=== PATIENT | female | born 1965 | race African-American/Black ===

== ENCOUNTER 2016-05-03 07:48 | Emergency (ER) | payer BC ==
[2016-05-03] MEDS ORDERED: KETOROLAC TROMETHAMINE 60 MG/2 ML SDV IM ONE (09:58)
--- NOTE | 2016-05-03 10:25 | ER Document Report ---
HPI - HPI Patient complains to provider of: right hand and left foot pain Onset: Yesterday Onset/Duration: Waxing and waning Quality of pain: Achy Severity: Severe Pain Level: 5 Context: Patient presents to the emergency department with complaints of left foot pain and right hand pain. Patient reports she's had trouble usually with her right foot but today its her left foot that hurts. She reports she works at [employer] and is up all night on her feet. 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 Patient denies trauma. Denies f/n/v. Reports she takes tramadol for her right foot and knee pain but it was not taking care of the pain today. Associated Symptoms: None Exacerbated by: Movement, Walking Relieved by: Denies Similar symptoms previously: Yes Recently seen / treated by doctor: No - CARDIOVASCULAR Cardiovascular: DENIES: Chest pain - REPRODUCTIVE Reproductive: DENIES: : - DERM Skin Color: Normal Past Medical History - General Information source: Patient Last Menstrual Period: [facility] - Social History Smoking Status: Unknown if Ever Smoked Cigarette use (# per day): No Chew tobacco use (# tins/day): No Frequency of alcohol use: None Drug Abuse: None Occupation: [employer] Family History: Reviewed & Not Pertinent Patient has suicidal ideation: No Patient has homicidal ideation: No - Past Medical History Cardiac Medical History: Reports: Hx Hypertension Renal/ Medical History: Denies: Hx Peritoneal Dialysis Past Surgical History: Reports: Hx Section - x2, Hx Cholecystectomy, Hx Tubal Ligation - Immunizations Hx Diphtheria, Pertussis, Tetanus Vaccination: - 2007 Vertical Provider Document - CONSTITUTIONAL Agree With Documented VS: Yes Exam Limitations: No Limitations General Appearance: WD/WN, Mild Distress - INFECTION CONTROL TRAVEL OUTSIDE OF THE [place] IN LAST 30 DAYS: No - HEENT HEENT: Atraumatic, Normocephalic - NECK Neck: Normal Inspection, Supple. negative: Lymphadenopathy-Left, Lymphadenopathy-Right - RESPIRATORY Respiratory: Breath Sounds Normal, No Respiratory Distress O2 Sat by Pulse Oximetry: 96 - CARDIOVASCULAR Cardiovascular: Regular Rate, Regular Rhythm - MUSCULOSKELETAL/EXTREMETIES Musculoskeletal/Extremeties: MAEW, FROM, Tender - right wrist ttp +tinel sign, neg phalen right hand swollen, no erythema, no warmth, no open sores/lesions left foot- c/o pain to touch to heel, lateral/medial ankles, no obvious deformity, no swelling, good pedal pulse, good cap refill - NEURO Level of Consciousness: Awake, Alert, Appropriate Motor/Sensory: No Motor Deficit - DERM Integumentary: Warm, Dry Adult Front & Back Diagram: 1 - + tinel 2 - c/o pain Course - Re-evaluation Re-evalutation: 05/03/16 10:53 Discussed x-ray plan of care with patient. Patient reports Toradol injection helped her pain his now 3 over 5. She was instructed to follow up with Dr. Young tomorrow for recheck and evaluation possible referral to picture hanger or surgery. She verbalized understanding. - Vital Signs Vital signs: Temp Pulse Resp BP Pulse Ox 98.9 F 94 20 186/109 H 96 05/03/16 07:54 05/03/16 07:54 05/03/16 07:54 05/03/16 07:54 05/03/16 07:54 - Diagnostic Test Radiology reviewed: Image reviewed, Reports reviewed - IMPRESSION: NEGATIVE STUDY OF THE LEFT FOOT. NO RADIOGRAPHIC EVIDENCE OF ACUTE INJURY. Discharge - Discharge Clinical Impression: Right hand pain, Left foot pain, Elevated blood pressure reading Condition: Stable Disposition: HOME, SELF-CARE Instructions: Temporary Splint ([facility]), Plantar Fasciitis or Heel Spur ([facility]), Toradol Injection ([facility]), Carpal Tunnel Syndrome ([facility]) Additional Instructions: *You have been evaluated for right hand, left foot pain, suspect carpal tunnel syndrome and plantar fasciitis *Do stretches as discussed for foot, ice \ elevate your foot *Maintain the splint for carpal tunnel *Follow up with orthopedics for evaluation this week-call for an appointment *Take your medication as prescribed fMonitor your blood pressure. Your blood pressure was elevated today. This may be because you were anxious, in pain or because you need medication. It is important to follow up with your primary care provider for full evaluation.or pain- tramadol *Follow up with Dr Jacobson within the next 3 days for recheck *Return to ED for worsening condition, changes, needs Forms: Elevated Blood Pressure, Return to Work Referrals: SUE YOUNG DO [Primary Care Provider] - Follow up as needed
[2016-05-03 11:49] VITALS: BP 177/100
== END 2016-05-03 11:47 | disposition home or self-care (01) ==
LOC: ER 07:48
DX: M79.641 Pain in right hand (principal); M79.672 Pain in left foot; R03.0 Elevated blood-pressure reading, without diagnosis of hypertension
CPT/HCPCS: 99283; 96372; 73630; L3984; J1885

== ENCOUNTER 2016-06-19 03:37 | Emergency (ER) | payer BC ==
[2016-06-19] MEDS ORDERED: KETOROLAC TROMETHAMINE 60 MG/2 ML SDV IM ONE (08:07)
--- NOTE | 2016-06-19 08:12 | ER Document Report ---
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 Bent forward and felt worseing pain in back, right knee got worse, then left knee, hands were more painful as well. 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 Hx carpal tunnel. No hx DVT. No chest pain or sob. No leg swelling. Associated Symptoms: None Exacerbated by: Standing, Walking Relieved by: Denies - ROS ROS below otherwise negative: Yes Systems Reviewed and Negative: Yes All other systems reviewed and negative - CARDIOVASCULAR Cardiovascular: DENIES: Chest pain - REPRODUCTIVE LMP: na Reproductive: DENIES: : - DERM Skin Color: Normal Past Medical History - General Information source: Patient - Social History Smoking Status: Never Smoker Chew tobacco use (# tins/day): No Frequency of alcohol use: Rare Drug Abuse: None Occupation: [employer] Lives with: Family Family History: Reviewed & Not Pertinent Patient has suicidal ideation: No Patient has homicidal ideation: No - Past Medical History Cardiac Medical History: Reports: Hx Hypertension Renal/ Medical History: Denies: Hx Peritoneal Dialysis Past Surgical History: Reports: Hx Section - x2, Hx Cholecystectomy, Hx Tubal Ligation - Immunizations Hx Diphtheria, Pertussis, Tetanus Vaccination: - 2007 Vertical Provider Document - CONSTITUTIONAL Agree With Documented VS: Yes Exam Limitations: No Limitations General Appearance: No Apparent Distress - INFECTION CONTROL TRAVEL OUTSIDE OF THE [place] IN LAST 30 DAYS: No - HEENT HEENT: Normocephalic - NECK Neck: Supple - RESPIRATORY Respiratory: Breath Sounds Normal, No Respiratory Distress O2 Sat by Pulse Oximetry: 97 - CARDIOVASCULAR Cardiovascular: Regular Rate, Regular Rhythm - GI/ABDOMEN Gastrointestinal: Abdomen Soft, Abdomen Non-Tender - BACK Back: Normal Inspection - tender lumbar muscles - MUSCULOSKELETAL/EXTREMETIES Musculoskeletal/Extremeties: ALEX, FROM Notes: dorsal right hand is larger than left, she takes it gets that way due to carpal tunnel and wearing a splint. - NEURO Level of Consciousness: Awake, Alert Motor/Sensory: No Motor Deficit, No Sensory Deficit - DERM Integumentary: Warm, Dry Course - Vital Signs Vital signs: Temp Pulse Resp BP Pulse Ox 98.3 F 93 18 161/84 H 97 06/19/16 03:48 06/19/16 03:48 06/19/16 03:48 06/19/16 03:48 06/19/16 03:48 Procedures - Immobilization Right Wrist Time completed: 08:39 Pre-Proc Neuro Vasc Exam: Normal Immobilizer type: Lukas wrap Performed by: RN Post-Proc Neuro Vasc Exam: Normal Alignment checked and good: Yes Discharge - Discharge Clinical Impression: myalgia, arthralgias, exacerbation of chronic back pain Condition: Good Disposition: HOME, SELF-CARE Instructions: Warm Packs ([facility] AT [facility]), Acetaminophen, Anti-Inflammatory Medication ( [facility]), Arthralgia ([facility]), Myalagia (Muscle Pain) ([facility]S AT [facility]), Low Back Pain (OM), Toradol Injection ([facility] AT [facility]) Additional Instructions: warm compress to sore areas See Dr. Young today Rest Range of motion stretching Please complete the patient satisfaction survey if you get one, and return it.. If you do not receive a survey, then you can go to the [facility]S [facility] website, [email or web address] and place your comments about your very good care. Thank you very much. It was a pleasure being your medical provider today. Prescriptions: Ibuprofen [Motrin 800 mg Tablet] 800 mg PO Q8HP PRN #30 tablet PRN Reason: Forms: Return to Work Referrals: SUE YOUNG DO [Primary Care Provider] - 06/19/16
[2016-06-19 08:48] VITALS: BP 140/76
== END 2016-06-19 08:47 | disposition home or self-care (01) ==
LOC: ER 03:37
DX: G89.29 Other chronic pain (principal); M54.9 Dorsalgia, unspecified; M25.561 Pain in right knee; M25.562 Pain in left knee; M79.642 Pain in left hand; G56.01 Carpal tunnel syndrome, right upper limb; M79.641 Pain in right hand; I10 Essential (primary) hypertension; M25.50 Pain in unspecified joint
CPT/HCPCS: 99283; 96372; J1885

== ENCOUNTER → 2016-07-28 | Outpatient (CLI) | payer BC | LOC: OD 09:05 | PROVIDERS: ATTEND Family Medicine | DX: M25.531 Pain in right wrist (principal) ==

== ENCOUNTER 2016-09-02 11:25 | Emergency (ER) | payer BC ==
[2016-09-02] MEDS ORDERED: TRAMADOL HCL 50 MG TABLET PO ONE (12:49)
--- NOTE | 2016-09-02 12:56 | ER Document Report ---
ED General - General Chief Complaint: Hip Pain Stated Complaint: RIGHT HIP/KNEE PAIN/LEFT HAND PAIN Time Seen by Provider: 09/02/16 12:13 Notes: 50 yo female c/o pain to right hip, right knee and left hand since August 23. no trauma. works at [employer]. + hx/o HTN. has hx/of tendonitis in left wrist. TRAVEL OUTSIDE OF THE [place] IN LAST 30 DAYS: No - HPI Onset/Duration: Persistent Quality of pain: Throbbing Associated symptoms: None. denies: Body/muscle aches, Chest pain, Chills, Fever , Shortness of breath - Related Data Allergies/Adverse Reactions: acetaminophen [From Percocet] Allergy (Verified 09/02/16 11:32) oxycodone HCl [From Percocet] Allergy (Verified 09/02/16 11:32) Past Medical History - General Information source: Patient - Social History Smoking Status: Former Smoker Frequency of alcohol use: None Drug Abuse: None Lives with: Family Family History: Reviewed & Not Pertinent Patient has suicidal ideation: No Patient has homicidal ideation: No - Past Medical History Cardiac Medical History: Reports: Hx Hypertension Renal/ Medical History: Denies: Hx Peritoneal Dialysis Past Surgical History: Reports: Hx Section - x2, Hx Cholecystectomy, Hx Tubal Ligation - Immunizations Hx Diphtheria, Pertussis, Tetanus Vaccination: - 2007 Review of Systems - Review of Systems Constitutional: No symptoms reported EENT: No symptoms reported Cardiovascular: No symptoms reported Respiratory: No symptoms reported Gastrointestinal: No symptoms reported Genitourinary: No symptoms reported Female Genitourinary: No symptoms reported Musculoskeletal: No symptoms reported Skin: No symptoms reported Hematologic/Lymphatic: No symptoms reported Neurological/Psychological: No symptoms reported Physical Exam - Vital signs Vitals: Temp Pulse Resp BP Pulse Ox 98.1 F 89 16 151/80 H 97 09/02/16 11:34 09/02/16 11:34 09/02/16 11:34 09/02/16 11:34 09/02/16 11:34 Interpretation: Normal - General General appearance: Appears well, Alert In distress: None - obese - HEENT Head: Normocephalic, Atraumatic Eyes: Normal Pupils: PERRL - Respiratory Respiratory status: No respiratory distress Chest status: Nontender Breath sounds: Normal Chest palpation: Normal - Cardiovascular Rhythm: Regular Heart sounds: Normal auscultation Murmur: No - Abdominal Inspection: Normal Distension: No distension Bowel sounds: Normal Tenderness: Nontender Organomegaly: No organomegaly - Back Back: Normal, Nontender - Extremities General upper extremity: Normal inspection, Nontender, Normal color, Normal ROM , Normal temperature Wrist: Tender - left radial border tender. no edema Knee: Tender - right knee. mild prepatellar soft tissue swelling. no effusion. - Neurological Neuro grossly intact: Yes Cognition: Normal Orientation: AAOx4 Cade Coma Scale Eye Opening: Spontaneous [place] Coma Scale Verbal: Oriented [place] Coma Scale Motor: Obeys Commands Cade Coma Scale Total: 15 Speech: Normal Motor strength normal: LUE, RUE, LLE, RLE Sensory: Normal - Psychological Associated symptoms: Normal affect, Normal mood - Skin Skin Temperature: Warm Skin Moisture: Dry Skin Color: Normal Course - Vital Signs Vital signs: Temp Pulse Resp BP Pulse Ox 98.1 F 89 16 151/80 H 97 09/02/16 11:34 09/02/16 11:34 09/02/16 11:34 09/02/16 11:34 09/02/16 11:34 - Laboratory Result Diagrams: 09/02/16 13:00 09/02/16 13:00 Laboratory results interpreted by me: 09/02/16 09/02/16 13:00 13:00 Hgb 11.1 L Hct 34.5 L MCH 25.8 L RDW 16.1 H Potassium 3.3 L Chloride 97 L BUN 23 H Est GFR ( Amer) 55 L Est GFR (Non-Af Amer) 45 L Glucose 126 H Uric Acid 11.4 H Discharge - Discharge Clinical Impression: Hypokalemia Gout Qualifiers: Gout site: unspecified site Gout etiology: unspecified cause Chronicity: acute Qualified Code(s): M10.9 - Gout, unspecified Condition: Stable Disposition: HOME, SELF-CARE Instructions: Gout ([facility]), Gout Diet ([facility]), Hypokalemia ([facility]), Ultram ([facility]) Additional Instructions: Your uric acid level is elevated, which is consistant with gout please take Colcrys for the gout attack take ultram for pain your potassium level was slightly low. please continue your potassium supplements as prescribed. increase potassium rich foods please follow up with your primary care provider tomorrow Prescriptions: Colchicine [Colcrys 0.6 mg Tablet] 0.6 mg PO ASDIR PRN #10 tablet PRN Reason: Tramadol HCl [Ultram 50 mg Tablet] 50 mg PO ASDIR PRN #20 tablet PRN Reason: Referrals: SUE CLEMONS DO [Primary Care Provider] - Follow up as needed
[2016-09-02 13:11] LABS: ABSOLUTE EOSINOPHILS # (AUTO) 0.2 10^3/uL (0.0-0.6); ABSOLUTE LYMPHOCYTES (AUTO) 1.9 10^3/uL (0.5-4.7); ABSOLUTE MONOCYTES (AUTO) 0.4 10^3/uL (0.1-1.4); ABSOLUTE NEUT (AUTO) 4.7 10^3/uL (1.7-8.2); BASOPHILS % (AUTO) 0.4 % (0-2); EOSINOPHILS % (AUTO) 2.6 % (0-6); HEMATOCRIT 34.5 % (36.0-47.0); HEMOGLOBIN 11.1 g/dL (12.0-15.5); HGB HCT DIFFERENCE -1.2; LYMPHOCYTES % (AUTO) 26.3 % (13-45); MEAN CORPUSCULAR HEMOGLOBIN 25.8 pg (27.0-33.4); MEAN CORPUSCULAR HGB CONC 32.3 g/dL (32.0-36.0); MEAN CORPUSCULAR VOLUME 80 fl (80-97); MONOCYTES % (AUTO) 6.1 % (3-13); RED BLOOD COUNT 4.32 10^6/uL (3.72-5.28); RED CELL DISTRIBUTION WIDTH 16.1 % (11.5-14.0); SEGMENTED NEUTROPHILS % (AUTO) 64.6 % (42-78); WHITE BLOOD COUNT 7.3 10^3/uL (4.0-10.5)
[2016-09-02 13:27] LABS: ALANINE AMINOTRANSFERASE 36 U/L (9-52); ALKALINE PHOSPHATASE 98 U/L (38-126); ANION GAP 15 (5-19); ASPARTATE AMINO TRANSFERASE 26 U/L (14-36); BILIRUBIN,DIRECT 0.3 mg/dL (0.0-0.4); BILIRUBIN,TOTAL 0.6 mg/dL (0.2-1.3); BLOOD UREA NITROGEN 23 mg/dL (7-20); CALCIUM 9.8 mg/dL (8.4-10.2); CARBON DIOXIDE 29 mmol/L (22-30); CHLORIDE 97 mmol/L (98-107); CREATININE RESULT 1.24 mg/dL (0.52-1.25); GLUCOSE 126 mg/dL (75-110); POTASSIUM 3.3 mmol/L (3.6-5.0); SODIUM 140.7 mmol/L (137-145); TOTAL PROTEIN 7.7 g/dL (6.3-8.2); URIC ACID 11.4 mg/dL (2.5-7.5)
[2016-09-02 14:29] VITALS: BP 147/78
== END 2016-09-02 14:27 | disposition home or self-care (01) ==
LOC: ER 11:25
DX: E87.6 Hypokalemia (principal); M10.9 Gout, unspecified; M25.551 Pain in right hip; M25.561 Pain in right knee; M79.642 Pain in left hand; Z87.891 Personal history of nicotine dependence; I10 Essential (primary) hypertension
CPT/HCPCS: 36415; 80053; 84550; 85025; 99283

== ENCOUNTER → 2016-09-09 | Outpatient (CLI) | payer BC ==
--- NOTE | 2016-09-09 16:06 | WOMENS IMAGING REPORT ---
EXAM DESCRIPTION: BILAT SCREENING MAMMO W/CAD COMPLETED DATE/TIME: 09/09/2016 10:08 am REASON FOR STUDY: Z12.31, ROUTINE SCREENING MAMMO Z12.31 ENCNTR SCREEN MAMMOGRAM FOR MALIGNANT NEOP LASM OF MELISA COMPARISON: 10/08/2011 TECHNIQUE: Standard craniocaudal and mediolateral oblique views of each breast recorded using digita l acquisition. LIMITATIONS: None. FINDINGS: No masses, calcifications or architectural distortion. No areas of suspicion. Read with the assistance of CAD. .[facility] - R2 Cenova Version 1.3 .[facility] - R2 Cenova Version 1.3 .[facility] - R2 Cenova Version 2.4 .[facility] [place] R2 Cenova Version 2.4 .[facility] - R2 [employer] Heavy Version 9.2 IMPRESSION: NORMAL MAMMOGRAM. BIRADS 1. BREAST DENSITY: a. The breasts are almost entirely fatty. BIRAD: 1 NEGATIVE RECOMMENDATION: ROUTINE SCREENING COMMENT: The patient has been notified of the results by letter per SA requirements. Additional no tification policies are in place for contacting patient with suspicious or incomplete findings. Quality ID #[id number]: The [employer] recommends an annual screening mammogram for women aged 40 years or over. This facility utilizes a reminder system to ensure that all patients receive reminder letters, and/or direct phone calls for appointments. This includes reminders for routine scr eening mammograms, diagnostic mammograms, or other Breast Imaging Interventions when appropriate. Th is patient will be placed in the appropriate reminder system. The [employer] (ACR) has developed recommendations for screening MRI of the breast s in certain patient populations, to be used in conjunction with mammography. Breast MRI surveillanc e may be appropriate for women with more than 20% lifetime risk of developing breast cancer as deter mined by genetic testing, significant family history of the disease, or history of mantle radiation f or Hodgkins Disease. ACR Practice Guidelines 2008. TECHNICAL DOCUMENTATION: FINDING NUMBER: (1) ASSESSMENT: (1) JOB ID: [id number] [employer]- All Rights Reserved
== END ==
LOC: WI 11:10
PROVIDERS: ATTEND Family Medicine
DX: Z12.31 Encounter for screening mammogram for malignant neoplasm of breast (principal)
CPT/HCPCS: 77067; G0202

== ENCOUNTER 2016-10-21 09:10 | Emergency (ER) | payer BC ==
--- NOTE | 2016-10-21 10:10 | ER Document Report ---
HPI - HPI Patient complains to provider of: right knee pain Pain Level: 4 Context: 50 yo female c/o pain and swelling to right knee x 1 week. no trauma. aggravated with prolonged standing at work. pt recently diagnosed with gout in same knee, treated with Colcrys with good results. This pain feels different than gout. denies fever, shortness of breath or chest pain Associated Symptoms: None Exacerbated by: Movement, Walking Relieved by: Denies Similar symptoms previously: Yes Recently seen / treated by doctor: Yes - REPRODUCTIVE Reproductive: DENIES: : - DERM Skin Color: Normal Past Medical History - General Information source: Patient - Social History Smoking Status: Never Smoker Frequency of alcohol use: None Drug Abuse: None Lives with: Family Family History: Reviewed & Not Pertinent - Past Medical History Cardiac Medical History: Reports: Hx Hypertension Renal/ Medical History: Denies: Hx Peritoneal Dialysis Past Surgical History: Reports: Hx Section - x2, Hx Cholecystectomy, Hx Orthopedic Surgery - rt. knee arthroscopy, Hx Tubal Ligation - Immunizations Hx Diphtheria, Pertussis, Tetanus Vaccination: - 2007 Vertical Provider Document - CONSTITUTIONAL Agree With Documented VS: Yes Exam Limitations: No Limitations - INFECTION CONTROL TRAVEL OUTSIDE OF THE [place] IN LAST 30 DAYS: No - HEENT HEENT: Atraumatic - NECK Neck: Normal Inspection, Supple - RESPIRATORY Respiratory: Breath Sounds Normal, No Respiratory Distress O2 Sat by Pulse Oximetry: 98 - CARDIOVASCULAR Cardiovascular: Regular Rate, Regular Rhythm - BACK Back: Normal Inspection - MUSCULOSKELETAL/EXTREMETIES Musculoskeletal/Extremeties: Tender - right knee suprapatellar tenderness. + mdiline joint tenderness. no popliteal pain Course - Re-evaluation Re-evalutation: 10/21/16 10:10 no s/s septic joint, not suspicious for gout flare. will treat symptomatically and have patient follow up with primary care for frther evaluation and possible ortho referral. pt agreeable with plan and stable for discharge - Vital Signs Vital signs: Temp Pulse Resp BP Pulse Ox 98.4 F 100 20 133/64 H 98 10/21/16 09:21 10/21/16 09:21 10/21/16 09:21 10/21/16 09:21 10/21/16 09:21 Procedures - Immobilization right knee Pre-Proc Neuro Vasc Exam: Normal Immobilizer type: Lukas wrap Performed by: PCT Post-Proc Neuro Vasc Exam: Normal Alignment checked and good: Yes Discharge - Discharge Clinical Impression: Right knee pain Qualifiers: Chronicity: acute Qualified Code(s): M25.561 - Pain in right knee Condition: Stable Disposition: HOME, SELF-CARE Instructions: Ice & Elevation ([facility]), Suspected Internal Knee Injury ([facility]), Ibuprofen (General) ([facility]), Ultram ([facility]), Lukas Wrap ([facility]) Additional Instructions: Please follow up with your primary care provider for further evaluation and treatment, and possible orthopedic referral medications as prescribed wear lukas wrap for comfort and support Prescriptions: Ibuprofen [Motrin 800 Mg Tablet] 800 mg PO Q6H #20 tablet Tramadol HCl [Ultram 50 mg Tablet] 50 mg PO ASDIR PRN #20 tablet PRN Reason:
[2016-10-21 10:39] VITALS: BP 136/70
== END 2016-10-21 10:37 | disposition home or self-care (01) ==
LOC: ER 09:10
DX: M25.561 Pain in right knee (principal); I10 Essential (primary) hypertension
CPT/HCPCS: 99283

== ENCOUNTER → 2016-11-02 | Outpatient (CLI) | payer BC ==
--- NOTE | 2016-11-02 10:59 | RADIOLOGY REPORT (SQ) ---
EXAM DESCRIPTION: KNEE RIGHT 4 VIEWS COMPLETED DATE/TIME: 11/02/2016 9:53 am REASON FOR STUDY: RT KNEE PAIN, UNSPECIFIED CHRONICITY M25.561 PAIN IN RIGHT KNEE COMPARISON: None. NUMBER OF VIEWS: Four views. TECHNIQUE: AP, lateral, and both oblique radiographic images acquired of the right knee. LIMITATIONS: None. FINDINGS: MINERALIZATION: Normal. BONES: No acute fracture or dislocation. No worrisome bone lesions. JOINT: Small joint effusion. Severe degenerative changes involving the medial compartment and the pa tellofemoral joint with mild changes seen in the lateral compartment. SOFT TISSUES: No soft tissue swelling. No radio-opaque foreign body. OTHER: No other significant finding. IMPRESSION: Severe degenerative changes involving the right knee with small joint effusion. TECHNICAL DOCUMENTATION: JOB ID: [id number] [employer]- All Rights Reserved
== END ==
LOC: OD 09:17
PROVIDERS: ATTEND Family Medicine
DX: M25.561 Pain in right knee (principal)

== ENCOUNTER 2017-02-17 08:19 | Emergency (ER) | payer BC ==
--- NOTE | 2017-02-17 09:44 | ER Document Report ---
ED Extremity Problem, Lower - General Chief Complaint: Foot Pain Stated Complaint: LT FOOT PAIN Time Seen by Provider: 02/17/17 09:19 Information source: Patient Notes: 51-year-old female with past medical history as recorded a presents today with the onset 2 days ago of some pain to the dorsal aspect of the left foot mostly to the left great toe. Patient denies any trauma to the foot. Patient states 1 year ago she was diagnosed with gout to the right foot. Patient on January 27 had a right knee replacement. She denies any pain, swelling, or tenderness to bilateral calves. She denies any leg swelling. She denies any chest pain or shortness of breath. TRAVEL OUTSIDE OF THE [place] IN LAST 30 DAYS: No - HPI Patient complains to provider of: Pain Location: Great Toe - See above Occurred: Other - See above Where: Home Onset/Duration: Gradual Quality of pain: Achy Severity: Mild Pain Level: 1 Context: Other - See above Recent injury: No Associated symptoms: Other - See above Exacerbated by: Movement, Walking Relieved by: Nothing - Related Data Allergies/Adverse Reactions: acetaminophen [From Percocet] Allergy (Verified 02/17/17 09:34) oxycodone HCl [From Percocet] Allergy (Verified 02/17/17 09:34) Past Medical History - General Information source: Patient - Social History Smoking Status: Unknown if Ever Smoked Chew tobacco use (# tins/day): No Frequency of alcohol use: None Drug Abuse: None Family History: Reviewed & Not Pertinent Patient has suicidal ideation: No Patient has homicidal ideation: No - Past Medical History Cardiac Medical History: Reports: Hx Hypertension Renal/ Medical History: Denies: Hx Peritoneal Dialysis Past Surgical History: Reports: Hx Section - x2, Hx Cholecystectomy, Hx Orthopedic Surgery - rt. knee replacement, Hx Tubal Ligation - Immunizations Hx Diphtheria, Pertussis, Tetanus Vaccination: - 2007 Review of Systems - Review of Systems Constitutional: denies: Fever Cardiovascular: denies: Chest pain, Palpitations Respiratory: denies: Hurts to breathe, Short of breath Musculoskeletal: denies: Leg swelling Skin: Other - no hives. denies: Rash Hematologic/Lymphatic: denies: Blood clots Neurological/Psychological: Other - no slurred speech -: Yes All other systems reviewed and negative Physical Exam - Vital signs Vitals: Temp Pulse Resp BP Pulse Ox 98.3 F 74 18 146/62 H 98 02/17/17 08:30 02/17/17 08:30 02/17/17 08:30 02/17/17 08:30 02/17/17 08:30 Notes: Reviewed vital signs and nursing note as charted by RN. CONSTITUTIONAL: Alert and oriented and responds appropriately to questions. Well -appearing; well-nourished CARD: Regular rate and rhythm; no murmurs RESP: Normal chest excursion without splinting or tachypnea; breath sounds clear and equal bilaterally ABD/GI: Normal bowel sounds; non-distended; soft, non-tender EXT: Patient has some tenderness to the left foot, to the dorsal aspect, mostly to the base of the first metatarsal. There is no swelling, erythema, or edema. No bruising or fluctuance noted. Strong dorsalis pedis pulses present. There is no ankle tenderness, no calf pain or leg swelling. The patient's right knee has a well-healed, well approximated scar without any right calf pain or swelling SKIN: No acute lesions noted NEURO: Moves all extremities equally; Motor and sensory function intact PSYCH: The patient's mood and manner are appropriate. Grooming and personal hygiene are appropriate. Course - Re-evaluation Re-evalutation: 02/17/17 09:43 Given the above history and physical examination, I will obtain an x-ray of the left foot to evaluate for possible fracture. I will order a chemistry in case colchicine as needed. Given that the patient has no calf pain, leg swelling, chest pain, or shortness of breath, I do believe that a DVT is unlikely. Given that the patient was previously diagnosed with gout, I do believe gout is likely. I do not see any distinct joint erythema or signs of infection to necessitate intra-articular aspiration. 02/17/17 10:43 X-ray shows no obvious fractures or osseous abnormalities. Patient's creatinine is elevated from previous levels. I provided a liter of fluid. Patient has had no fevers or vomiting. Patient has had no diarrhea. Patient has never had troubles with her kidneys previously. I provided a one-time dose of only 10 mEq of potassium given the patient's creatinine. I have added a CBC. 02/17/17 11:04 Patient states a few weeks ago she was started on Lasix secondary to some lower extremity edema. Patient takes potassium replacement supplements. Patient also states when she had a knee surgery despite stating she had no gout pain, they were giving her colchicine in the hospital. She also states she took 3 tablets last evening. We have provided a liter of fluid. We will repeat chemistry after fluid has been provided. 02/17/17 15:32 Patient's creatinine has improved. Potassium essentially unchanged. Patient does take potassium supplements. Now that the creatinine has improved I will provide another IV dose of potassium. No change in foot examination. I have encouraged the patient to please follow-up with the primary care provider but not to take any colchicine or NSAIDs given her kidney function. Patient understands that she can continue to take appropriate fluids as well as potassium tablets. She states that she can follow-up with her primary care physician. - Vital Signs Vital signs: Temp Pulse Resp BP Pulse Ox 98.3 F 74 15 154/67 H 98 02/17/17 08:30 02/17/17 08:30 02/17/17 12:00 02/17/17 11:53 02/17/17 12:00 - Laboratory Result Diagrams: 02/17/17 09:40 02/17/17 14:34 Laboratory results interpreted by me: 02/17/17 02/17/17 02/17/17 09:40 09:40 14:34 Hgb 11.0 L Hct 33.2 L MCV 79 L MCH 26.1 L RDW 16.7 H Potassium 3.0 L* 2.9 L* Chloride 93 L 95 L Carbon Dioxide 36 H 32 H BUN 39 H 33 H Creatinine 1.91 H 1.67 H Est GFR ( Amer) 33 L 39 L Est GFR (Non-Af Amer) 27 L 32 L Glucose 114 H Discharge - Discharge Clinical Impression: Left foot pain, Hypokalemia Acute renal failure Qualifiers: Acute renal failure type: unspecified Qualified Code(s): N17.9 - Acute kidney failure, unspecified Condition: Good Disposition: HOME, SELF-CARE Additional Instructions: Please make sure you come back immediately with any increased foot pain, swelling, weakness or numbness, fevers, redness, or any other acute problems. Please make sure that she follow-up with your primary care physician in an expedited fashion as we have discussed. Please drink plenty of fluids and make sure you take your potassium supplements as directed. Please make sure that she have your potassium and chemistry rechecked in the next 3-4 days. Prescriptions: Hydrocodone/Acetaminophen [Philipp 5-325 Tablet] 1 each PO Q6 PRN #12 tablet PRN Reason: For Pain Referrals: SUE CLEMONS, [Primary Care Provider] - Follow up as needed
[2017-02-17 10:06] LABS: ANION GAP 14 (5-19); BLOOD UREA NITROGEN 39 mg/dL (7-20); CARBON DIOXIDE 36 mmol/L (22-30); CHLORIDE 93 mmol/L (98-107); CREATININE RESULT 1.91 mg/dL (0.52-1.25); GLUCOSE 114 mg/dL (75-110); SODIUM 142.7 mmol/L (137-145)
[2017-02-17] MEDS ORDERED: POTASSI CL 20 MEQ/50 ML RIDER 20 MEQ/50 ML RTUPB IV ONE ×2 (10:15→15:32)
[2017-02-17] MEDS ORDERED: NORMAL SALINE 1000 ML 1,000 ML IV ONE ×2 (10:15→12:22)
[2017-02-17 10:39] LABS: ABSOLUTE EOSINOPHILS # (AUTO) 0.2 10^3/uL (0.0-0.6); ABSOLUTE LYMPHOCYTES (AUTO) 1.7 10^3/uL (0.5-4.7); ABSOLUTE MONOCYTES (AUTO) 0.6 10^3/uL (0.1-1.4); ABSOLUTE NEUT (AUTO) 3.4 10^3/uL (1.7-8.2); BASOPHILS % (AUTO) 0.5 % (0-2); EOSINOPHILS % (AUTO) 3.8 % (0-6); HEMATOCRIT 33.2 % (36.0-47.0); HGB HCT DIFFERENCE -0.2; LYMPHOCYTES % (AUTO) 28.8 % (13-45); MEAN CORPUSCULAR HEMOGLOBIN 26.1 pg (27.0-33.4); MEAN CORPUSCULAR VOLUME 79 fl (80-97); MONOCYTES % (AUTO) 9.7 % (3-13); RED BLOOD COUNT 4.21 10^6/uL (3.72-5.28); RED CELL DISTRIBUTION WIDTH 16.7 % (11.5-14.0); SEGMENTED NEUTROPHILS % (AUTO) 57.2 % (42-78)
--- NOTE | 2017-02-17 10:40 | RADIOLOGY REPORT (SQ) ---
EXAM DESCRIPTION: FOOT LEFT COMPLETE COMPLETED DATE/TIME: 02/17/2017 10:14 am REASON FOR STUDY: 7, pain COMPARISON: 05/03/2016 NUMBER OF VIEWS: Three views. TECHNIQUE: AP, lateral and oblique radiographic images acquired of the left foot. LIMITATIONS: None. FINDINGS: MINERALIZATION: Normal. BONES: No fracture or dislocation. Very prominent dorsal calcaneal spurs are present. A small plant ar calcaneal spur. JOINTS: No effusions. SOFT TISSUES: Significant soft tissue swelling is present. OTHER: No other significant finding. IMPRESSION: Calcaneal spurs. Soft tissue swelling with no acute osseous abnormality. TECHNICAL DOCUMENTATION: JOB ID: [id number] [email or web address] All Rights Reserved
[2017-02-17 15:21] LABS: ANION GAP 15 (5-19); BLOOD UREA NITROGEN 33 mg/dL (7-20); CALCIUM 9.5 mg/dL (8.4-10.2); CARBON DIOXIDE 32 mmol/L (22-30); CHLORIDE 95 mmol/L (98-107); CREATININE RESULT 1.67 mg/dL (0.52-1.25); GLUCOSE 99 mg/dL (75-110); SODIUM 141.8 mmol/L (137-145)
[2017-02-17 15:25] LABS: POTASSIUM 2.9 mmol/L (3.6-5.0)
[2017-02-17 17:32] VITALS: BP 140/80
== END 2017-02-17 17:32 | disposition home or self-care (01) ==
LOC: ER 08:19
DX: M79.675 Pain in left toe(s) (principal); N17.9 Acute kidney failure, unspecified; E87.6 Hypokalemia; I10 Essential (primary) hypertension; Z96.651 Presence of right artificial knee joint; R60.0 Localized edema; Z79.899 Other long term (current) drug therapy; Z88.5 Allergy status to narcotic agent; Z88.6 Allergy status to analgesic agent; Z87.39 Personal history of other diseases of the musculoskeletal system and connective tissue
CPT/HCPCS: 99284; 96361; 96365; 96366; 36415; 85025; 80048; 73630; J3480; J7030